=== PATIENT | male | born 1955 | race Caucasian/White ===

== ENCOUNTER 2025-02-05 09:45 | Outpatient (AMB) | payer MEDICARE, MEDICAID, SELFPAY ==
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
--- OUTSIDE RECORDS SUMMARY | 2025-02-05 10:40 | XMS_ITS ---
Author Name [facility] Organization Unknown History of Medication Use Medication Directions Dispensed Refills Start Date End Date Stat nicotine (NICODERM CQ) 21 mg/[address] 1 patch on the skin 1 (one) time each day at the same time. 07/17/2024 08/17/2024 active atorvastatin (LIPITOR) 40 mg tablet Take 1 tablet (40 mg total) by mouth at bedtime. 02/22/2024 suspended glipiZIDE (GLUCOTROL) 10 mg tablet Take 1 tablet (10 mg total) by mouth 2 (two) times a day before meals. 01/10/2024 suspended Problems Problem Status Onset Date Problem Type Date of Resoluti on Source Dyslipidemia active 2024-07-17 ProblemAct [facility] Diabetes mellitus active 2010-03-06 ProblemAct [facility] Obstructive sleep apnea active 2024-07-17 ProblemAct [facility] Hypertension active 2010-03-06 ProblemAct [facility] Necrotizing pneumonia active 2024-07-12 ProblemAct [facility]
== END 2025-02-05 10:41 | disposition home or self-care (01) ==
LOC: HO.HUSH 09:46
PROVIDERS: PCP Internal Medicine; Visit Provider Nurse Practitioner Family
DX: R35.1 Nocturia (principal); R97.20 Elevated prostate specific antigen [PSA]; Z13.9 Encounter for screening, unspecified
CPT/HCPCS: 99203

== ENCOUNTER → 2025-02-05 09:45 | Outpatient (BNVA) | payer MEDICARE, MEDICAID, SELFPAY | PROVIDERS: PCP Internal Medicine; Visit Provider Nurse Practitioner Family | DX: R35.1 Nocturia (principal); R97.20 Elevated prostate specific antigen [PSA] | CPT/HCPCS: 81003; 99202 ==

== ENCOUNTER 2025-04-04 15:05 | Outpatient (REF) | payer MEDICARE, MEDICAID, SELFPAY ==
--- NOTE | ~2025-04-04 | US_ITS ---
EXAMINATION: US RETROPERITONEAL COMPLETE (RENAL) CLINICAL INFORMATION: History of. COMPARISON: None available. TECHNIQUE: Real-time imaging of the kidneys and bladder. FINDINGS: RIGHT KIDNEY: 10.4 x 4.6 x 2.7 cm (SAG x AP x TRV). The kidney is normal in size, contour, and echogenicity. Renal cortical thickness is normal. There are several anechoic cysts with the biggest cysts in the upper pole measuring 1.2 x 1.1 x 0.9 cm and 1.0 0.8 x 0.9 seen. There is an exophytic midpole cyst measuring 0.6 x 0.7 0.6 cm. No echogenic stones or hydronephrosis seen. LEFT KIDNEY: 10.9 x 4.6 x 4.1 cm (SAG x AP x TRV). The kidney is normal in size, contour, and echogenicity. Renal cortical thickness is normal. There is anechoic exophytic cyst in the lower pole measuring 1.9 x 2.0 x 1.6 cm. No calculi or focal parenchymal lesions. No hydronephrosis. BLADDER: Partially distended but normal. Bilateral ureteral jets are demonstrated. Prevoid bladder volume is 122.6 mL. Postvoid bladder volume is 13.4 mL. US/US retroperitoneal comp IMPRESSION: Bilateral renal cysts. There are no echogenic stones or hydronephrosis.. Electronically signed by: Matthew Cooley MD 04/05/2025 07:11 AM EDT
--- OUTSIDE RECORDS SUMMARY | 2025-04-04 15:09 | XMS_ITS ---
Author Name [facility] Organization Unknown History of Medication Use Medication Directions Dispensed Refills Start Date End Date Stat us nicotine (NICODERM CQ) 21 mg/[address] 1 patch on the skin 1 (one) time each day at the same time. 07/17/2024 08/17/2024 active atorvastatin (LIPITOR) 40 mg tablet Take 1 tablet (40 mg total) by mouth at bedtime. 02/22/2024 suspended glipiZIDE (GLUCOTROL) 10 mg tablet Take 1 tablet (10 mg total) by mouth 2 (two) times a day before meals. 01/10/2024 suspended Allergies Allergen Reaction Severity Comment Documented Date Source Statu s SHELLFISH CONTAINING PRODUCTS HIVES 07/11/2024 [facility] active ACETAMINOPHEN HIVES [facility] CELECOXIB HIVES [facility] IBUPROFEN HIVES [facility] Problems Problem Status Onset Date Problem Type Date of Resoluti on Source Dyslipidemia active 2024-07-17 ProblemAct [facility] Necrotizing pneumonia active 2024-07-12 ProblemAct [facility] Obstructive sleep apnea active 2024-07-17 ProblemAct [facility] Diabetes mellitus active 2010-03-06 ProblemAct [facility] Hypertension active 2010-03-06 ProblemAct [facility]
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
== END 2025-04-04 15:06 | disposition home or self-care (01) ==
LOC: HO.US 15:05
PROVIDERS: PCP Internal Medicine; Visit Provider Nurse Practitioner Family
DX: R35.1 Nocturia (principal); R97.20 Elevated prostate specific antigen [PSA]
CPT/HCPCS: 76770

== ENCOUNTER → 2025-04-04 15:10 | Outpatient (BNV) | payer MEDICARE, MEDICAID, SELFPAY | PROVIDERS: PCP Internal Medicine; Visit Provider Radiology Diagnostic Radiology | DX: N28.1 Cyst of kidney, acquired (principal) | CPT/HCPCS: 76770 ==